=== PATIENT | male | born 1970 | race Caucasian/White ===

== ENCOUNTER 2017-12-29 21:02 | Emergency (ER) | payer BC ==
--- NOTE | 2017-12-29 22:35 | ED ---
Respiratory - HPI Summary HPI Summary: 47 yr old with daughter at home with confirmed influenza A. The patient began to become ill five days ago with fever, chills, cough, runny nose, myalgias. he has remained with symptoms. No SOB. He has been missing work. - History of Current Complaint Chief Complaint: UCGeneralIllness Stated Complaint: FLU LIKE Time Seen by Provider: 12/29/17 22:26 Pain Intensity: 3 - Allergy/Home Medications Allergies/Adverse Reactions: Allergies Allergy/AdvReac Type Severity Reaction Status Date / Time No Known Allergies Allergy Verified 12/29/17 22:20 Home Medications: Home Medications Acetaminophen [Acetaminophen Extra Strength] 1,000 mg PO ONCE 12/29/17 [History Confirmed 12/29/17] PMH/Surg Hx/FS Hx/Imm Hx Infectious Disease History: No Infectious Disease History: Denies: Traveled Outside the [place] in Last 30 Days - Family History Known Family History: Positive: Other - influenza - Social History Alcohol Use: Rare Substance Use Type: Reports: None Smoking Status (MU): Never Smoked Tobacco Review of Systems Positive: Fever, Chills Positive: Ear Ache, Nasal Discharge Positive: Cough Positive: Myalgia All Other Systems Reviewed And Are Negative: Yes Physical Exam Triage Information Reviewed: Yes Vital Signs On Initial Exam: Initial Vitals Temp Pulse Resp BP Pulse Ox 98.5 F 91 16 125/82 98 12/29/17 22:18 12/29/17 22:18 12/29/17 22:18 12/29/17 22:18 12/29/17 22:18 Vital Signs Reviewed: Yes Appearance: Positive: Well-Appearing, No Pain Distress Skin: Positive: Warm, Skin Color Reflects Adequate Perfusion Head/Face: Positive: Normal Head/Face Inspection Eyes: Positive: EOMI ENT: Positive: Pharynx normal, Nasal congestion, Nasal drainage, TMs normal Neck: Positive: Nontender Respiratory/Lung Sounds: Positive: Clear to Auscultation, Breath Sounds Present Cardiovascular: Positive: Normal, RRR. Negative: Murmur Abdomen Description: Positive: Nontender Musculoskeletal: Positive: Strength/ROM Intact Neurological: Positive: Sensory/Motor Intact, Alert, Oriented to Person Place, Time, CN Intact II-III Psychiatric: Positive: Normal - [place] Coma Scale Best Eye Response: 4 - Spontaneous Best Motor Response: 6 - Obeys Commands Best Verbal Response: 5 - Oriented Coma Scale Total: 15 Diagnostics - Vital Signs Vital Signs Temp Pulse Resp BP Pulse Ox 12/29/17 22:18 98.5 F 91 16 125/82 98 - Laboratory Lab Statement: Any lab studies that have been ordered have been reviewed, and results considered in the medical decision making process. Disposition - Course Course Of Treatment: 47 yr with influenza. 5 days already. plan dc home on tamiflu. note for work. - Diagnoses Provider Diagnoses: Influenza Discharge - Discharge Plan Condition: Good Disposition: HOME Prescriptions: Oseltamivir CAP* [Tamiflu CAP*] 75 mg PO BID #10 cap Patient Education Materials: Influenza (ED) Forms: *Work Release Referrals: Francisco Foy MD [Primary Care Provider] - 2 Days
== END 2017-12-29 22:34 | disposition home or self-care (01) ==
LOC: UCCORT 21:02
DX: J11.1 Influenza due to unidentified influenza virus with other respiratory manifestations (principal); Z20.828 Contact with and (suspected) exposure to other viral communicable diseases
CPT/HCPCS: 99202; G0463

== ENCOUNTER 2017-12-31 18:17 | Emergency (ER) | payer BC ==
[2017-12-31] MEDS ORDERED: Amoxicillin/Clavulanate TAB* 875 MG PO ONE (23:13)
--- NOTE | 2017-12-31 23:21 | UC ---
Eye Complaint HPI - HPI Summary HPI Summary: 47 yo male diagnosed with flu 3 days ago has taken only one tamiflu productive cough sputum has dramatically changed color since last seen here f/c - History of Current Complaint Chief Complaint: UCRespiratory Stated Complaint: FEVER (102), CONGESTION Time Seen by Provider: 12/31/17 22:36 Hx Obtained From: Patient Onset/Duration: Gradual Onset, Lasting Days Timing: Constant Severity Initially: Moderate Severity Currently: Moderate Pain Intensity: 5 Pain Scale Used: 0-10 Numeric - Allergies/Home Medications Allergies/Adverse Reactions: Allergies Allergy/AdvReac Type Severity Reaction Status Date / Time No Known Allergies Allergy Verified 12/31/17 20:55 PMH/Surg Hx/FS Hx/Imm Hx Previously Healthy: Yes - Surgical History Surgical History: None - Family History Known Family History: Positive: Other - influenza - Social History Alcohol Use: Rare Substance Use Type: None Smoking Status (MU): Never Smoked Tobacco Review of Systems Constitutional: Fever, Chills, Fatigue Skin: Negative Eyes: Negative ENT: Nasal Discharge, Sinus Congestion, Sinus Pain/Tenderness Respiratory: Cough Cardiovascular: Negative Gastrointestinal: Negative Genitourinary: Negative Motor: Negative Neurovascular: Negative Musculoskeletal: Myalgia Neurological: Headache Psychological: Negative Is Patient Immunocompromised?: No All Other Systems Reviewed And Are Negative: Yes Physical Exam Triage Information Reviewed: Yes Appearance: Well-Appearing, No Pain Distress, Well-Nourished Vital Signs: Initial Vital Signs Temp 99.5 F 12/31/17 20:56 Pulse 94 12/31/17 20:56 Resp 18 12/31/17 20:56 BP 150/83 12/31/17 20:56 Pulse Ox 97 12/31/17 20:56 Vital Signs Reviewed: Yes Eyes: Positive: Conjunctiva Clear ENT: Positive: Nasal congestion, Nasal drainage. Negative: Trismus, Muffled voice, Hoarse voice, Sinus tenderness, Uvula midline Neck: Positive: Supple, Nontender, No Lymphadenopathy Respiratory: Positive: Lungs clear, Normal breath sounds, No respiratory distress, No accessory muscle use Cardiovascular: Positive: RRR, No Murmur Musculoskeletal: Positive: ROM Intact, No Edema Neurological Exam: Normal Neurological: Positive: Alert Psychological Exam: Normal Skin Exam: Normal Diagnostics - Radiology No standard instances Xray Interpretation: No Acute Changes Radiology Interpretation Completed By: ED Physician Eye Complaint Course/Dx - Differential Dx/Diagnosis Provider Diagnoses: influenza Discharge - Discharge Plan Condition: Stable Disposition: HOME Patient Education Materials: Influenza (ED) Forms: *Work Release Referrals: Francisco Foy MD [Primary Care Provider] - 2 Days Additional Instructions: I saw no pneumonia Call mid morning for official report rest fluids tamiflu
--- NOTE | 2018-01-01 07:56 | RAD ---
INDICATION: Fever and cough. COMPARISON: There are no prior studies available for comparison. TECHNIQUE: Dual-energy PA and lateral views of the chest were obtained. FINDINGS: The heart is within normal limits in size. Mediastinal and hilar contours appear within normal limits. The lungs are underinflated. There is minimal atelectasis at the left lung base. The lungs are otherwise clear. No pleural effusion is seen. IMPRESSION: NO EVIDENCE FOR ACUTE FINDING.
== END 2017-12-31 23:22 | disposition home or self-care (01) ==
LOC: UCCORT 18:17
DX: J11.1 Influenza due to unidentified influenza virus with other respiratory manifestations (principal); Z20.828 Contact with and (suspected) exposure to other viral communicable diseases
CPT/HCPCS: 71046; 99212; A9270-GY; G0463

== ENCOUNTER 2019-11-07 11:32 | Emergency (ER) | payer BC ==
[2019-11-07 12:43] VITALS: BP 163/91
--- NOTE | 2019-11-07 12:52 | UC ---
Dental HPI - HPI Summary HPI Summary: Patient is a 49 year old male , who present today to the urgent care with tooth pain for past 3 days. Left lower tooth started getting sore on Friday and now he is getting a swollen jaw. Tooth has been cracked for several months but he has not seen a dentist. He reports that pain was worse yesterday and it's better today. Took naproxen in the morning today. Pain 2-3. Pt is able to chew on opposite side. Started noticing the swelling today morning on the left jaw. He has an appointment for his children with the dentist tomorrow and will likely see the dentist tomorrow but did not want to wait until then. He denies any fevers or chills. - History of Current Complaint Chief Complaint: UCDentalProblem Stated Complaint: DENTAL COMPLAINT Time Seen by Provider: 11/07/19 12:44 Hx Obtained From: Patient Pain Intensity: 2 - Allergies/Home Medications Allergies/Adverse Reactions: Allergies Allergy/AdvReac Type Severity Reaction Status Date / Time No Known Allergies Allergy Verified 11/07/19 12:43 Home Medications: Home Medications Atorvastatin* [Lipitor*] 20 mg PO 1700 11/07/19 [History Confirmed 11/07/19] Naproxen Sodium [Naproxen 220 mg] 220 mg PO ONCE PRN 11/07/19 [History Confirmed 11/07/19] PMH/Surg Hx/FS Hx/Imm Hx - Additional Past Medical History Additional PMH: Past Medical History : Hyperlipidemia Past Surgical History: No Past History of Procedure Family History : non contributory Social History : Occasional alcohol, non smoker, no drug use. Previously Healthy: Yes - Surgical History Surgical History: None - Family History Known Family History: Positive: Other - influenza, Non-Contributory - Social History Alcohol Use: Occasionally Substance Use Type: None Smoking Status (MU): Never Smoked Tobacco Review of Systems All Other Systems Reviewed And Are Negative: Yes Constitutional: Positive: Negative Skin: Positive: Negative ENT: Positive: Dental Pain - Left lower second premolar Respiratory: Positive: Negative Cardiovascular: Positive: Negative Gastrointestinal: Positive: Negative Genitourinary: Positive: Negative Motor: Positive: Negative Neurovascular: Positive: Negative Musculoskeletal: Positive: Negative Neurological: Positive: Negative Psychological: Positive: Negative Is Patient Immunocompromised?: No Physical Exam - Summary Physical Exam Summary: Vital Signs Reviewed: Yes A+Ox3, no distress Eyes: Conjunctiva Clear ENT: Hearing grossly normal Dental exam: Fractured second premolar on the left lower jaw- tooth #20. There is tenderness to percussion. No significant swelling of the jaw noted. No fluctuation or drainage noted neck: supple Respiratory: Positive: No respiratory distress, No accessory muscle use Cardiovascular: skin color reflect adequate perfusion Musculoskeletal Exam: BECK x 4 without difficulty Neurological: Positive: Alert, ambulatory without difficulty Psychological: Positive: Normal Response To Family Skin: Positive: no rash, no ecchymosis Triage Information Reviewed: Yes Vital Signs: Initial Vital Signs Temp 98.7 F 11/07/19 12:38 Pulse 82 11/07/19 12:38 Resp 18 11/07/19 12:38 BP 163/91 11/07/19 12:38 Pulse Ox 99 11/07/19 12:38 Vital Signs Reviewed: Yes Dental Complaint Course/Dx - Course Course Of Treatment: Suspect pulpitis / gingivostomatitis with possible early dental abscess. Plan to treat it with antibiotics. He will follow-up with the dentist tomorrow. He expressed understanding - Differential Dx/Diagnosis Differential Diagnosis/Dx: Dental Abscess Provider Diagnosis: Gingivostomatitis, Pulpitis Discharge ED - Sign-Out/Discharge Documenting (check all that apply): Patient Departure All imaging exams completed and their final reports reviewed: No Studies - Discharge Plan Condition: Stable Disposition: HOME Prescriptions: Amoxicillin/Clavulanate TAB* [Augmentin TAB 875*] 875 mg PO BID 10 Days #20 tab Patient Education Materials: Gingivostomatitis (ED) Referrals: Francisco Foy MD [Primary Care Provider] - Additional Instructions: Please start taking the medication as prescribed to the pharmacy . Naproxen for pain control Follow up with your dentist tomorrow as she is seeing him for your kids. Your blood pressure slightly high in Urgent care today , plan follow up with PCP for better control Return to Urgent care / ER if symptoms get worse. - Billing Disposition and Condition Condition: STABLE Disposition: Home
== END 2019-11-07 13:04 | disposition home or self-care (01) ==
LOC: UCCORT 11:32
DX: K05.10 Chronic gingivitis, plaque induced (principal); K04.01 Reversible pulpitis; E78.5 Hyperlipidemia, unspecified; Z79.899 Other long term (current) drug therapy
CPT/HCPCS: 99212; G0463